=== PATIENT | male | born 1960 | race Caucasian/White ===

== ENCOUNTER 2017-08-05 01:54 | Emergency (ER) | payer OTHER ==
[~2017-08-05] VITALS: Ht 177.8 cm; Wt 81.0 kg
[2017-08-05 02:20] LABS: HEMOGLOBIN 16.1 G/DL (12.5-16.6); MCH 29.8 PG (29.0-34.0); MCHC 34.3 G/DL (30.0-36.0); PLATELET COUNT 250 K/uL (156-360)
[2017-08-05 02:30] LABS: ALBUMIN 4.3 g/dL (3.2-4.8)
[2017-08-05 02:31] LABS: CHLORIDE 106 mEq/L (99-109); POTASSIUM 3.7 mEq/L (3.7-5.4); SODIUM 140 mEq/L (136-147)
[2017-08-05 02:33] LABS: GLUCOSE 96 mg/dL (70-99); TOTAL PROTEIN 7.8 g/dL (6.4-8.3)
[2017-08-05 02:35] LABS: TOTAL BILIRUBIN 0.3 mg/dL (0.0-1.0)
[2017-08-05 02:36] LABS: ALKALINE PHOSPHATASE 90 IU/L (3-129)
[2017-08-05 02:37] LABS: CREATININE 0.9 mg/dL (0.6-1.3); GFR ESTIMATE (CALCULATED) > 59 mL/min/ (58.99-99999)
[2017-08-05 02:38] LABS: AST (GOT) 31 IU/L (2-34); UREA NITROGEN (BUN) 13 mg/dL (9-23)
[2017-08-05 02:40] LABS: ALT (GPT) 31 IU/L (3-49); LIPASE 101 U/L (1.0-51.0)
[2017-08-05 04:41] LABS: APPEARANCE CLEAR ((CLEAR)); BILIRUBIN NEGATIVE; BLOOD SMALL; COLOR YELLOW ((YELLOW)); GLUCOSE (STRIP) NEGATIVE; KETONES NEGATIVE; LEUKOCYTES NEGATIVE; NITRITE NEGATIVE; PROTEIN (STRIP) NEGATIVE; SPECIFIC GRAVITY 1.016 (1.000-1.030); UROBILINOGEN 0.2 MG/DL (0.2-1.0)
[2017-08-05 04:45] LABS: BACTERIA NONE SEEN /HPF; EPITHELIAL CELLS NONE SEEN /HPF; MUCUS TRACE /LPF; RED BLOOD CELLS 0-5 /HPF (0-5); UCUL ADDED? NO; WHITE BLOOD CELLS 0-5 /HPF (0-5)
[2017-08-05] MEDS ORDERED: RANITIDINE HCL150 M1 PO (04:53)
[2017-08-05] MEDS ORDERED: ZOFRAN ODT4 MG PO (04:53)
[2017-08-05] MEDS ORDERED: PROTONIX40 MG PO (04:53)
[2017-08-05 05:09] VITALS: BP 129/82
== END 2017-08-05 05:10 | disposition home or self-care (01) ==
LOC: EME 01:54
DX: R10.13 Epigastric pain (principal); R11.2 Nausea with vomiting, unspecified; F31.9 Bipolar disorder, unspecified; F32.9 Major depressive disorder, single episode, unspecified; F41.9 Anxiety disorder, unspecified; F17.200 Nicotine dependence, unspecified, uncomplicated; Z88.0 Allergy status to penicillin; Z88.7 Allergy status to serum and vaccine
CPT/HCPCS: 80053; 81003; 83690; 85027; J2405; J3010; J7030